=== PATIENT | female | born 2005 | race Two or more races ===

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

== ENCOUNTER 2023-07-27 11:02 | Emergency (ER) | payer MEDICAID, SELFPAY ==
--- NOTE | ~2023-07-27 | CT_ITS ---
EXAMINATION: CT SOFT TISSUE NECK WITH CONTRAST CLINICAL INFORMATION: Left throat pain COMPARISON: None available. TECHNIQUE: Following the administration of 60 mL of Omnipaque 350 intravenous contrast, helical imaging was performed in the axial plane with generation of coronal and sagittal reformatted images. This CT examination was performed using dose optimization techniques as appropriate, variously including the following: *Automated exposure control. *Adjustment of mA and/or kV according to patient size (this includes techniques or standardized protocols for targeted exams where dose is matched to indication/reason for exam; i.e. extremities or head). *Use of iterative reconstruction technique. DLP: 307.82 mGy-cm mGy-cm. FINDINGS: Nasopharynx/Skull Base: The fat planes at the skull base and the soft tissues of the nasopharynx are within normal limits. The paranasal sinuses and mastoid air cells are well-aerated. Suprahyoid Neck: Prominent hyperdensity centered along the left palatine tonsil without discrete rim enhancement. This extends inferiorly along the left aspect of the oropharynx with mild asymmetric narrowing of the aerodigestive tract. Likely trace extension into the retropharyngeal space. Infrahyoid Neck: The hypopharynx, larynx, and proximal subglottic airway are within normal limits. Thyroid: The thyroid is unremarkable without identifiable nodules. Nodes: Mildly prominent left greater than right upper cervical lymph nodes are likely reactive. Lung Apices: The partially visualized lungs are clear. Vascular Structures:The left vertebral artery likely arises directly from the aorta. The cervical vertebral arteries are not well evaluated secondary to adjacent dense venous contrast. Osseous Structures: No acute osseous abnormality. Other Findings: Limited intracranial evaluation is within normal limits. CT/CT soft tissue neck w IV con IMPRESSION: There is extensive hypodensity along the left oropharynx/centered along the left palatine tonsil without discrete rim enhancement. Finding likely represents phlegmonous change/developing abscess. Clinical correlation/attention on follow-up is recommended. Associated phlegmonous change/edema extends inferiorly to the level of the aryepiglottic folds.
[2023-07-27 11:29] VITALS: BP 104/66; PULSE 106; RESP 18; TEMP 37.1; O2SAT 100; BMI 23.7
--- NOTE | 2023-07-27 11:31 | ED.GENADULT ---
HPI - General Adult General Chief complaint: General Medical Stated complaint: Lump in throat, hard time swallowing Time Seen by Provider: 07/27/23 14:30 Source: patient Mode of arrival: ambulatory Limitations: no limitations History of Present Illness ED Provider: Maribeth CARO HPI narrative: This is a 17-year-old female with no known medical history presenting to the emergency department with complaints of sore throat for the past 3 days rapidly worsening. She reports the left side of her throat and neck hurt more than the right. She reports she has not been eating or drinking as much as usual secondary to difficulty swallowing.. Has not tried anything for pain or discomfort at home are [id number]. Reports subjective fevers and chills. Denies chest pain, nausea, vomiting, abdominal pain, headache, vision changes, dizziness and weakness. Related Data Previous Rx's ?Medication ?Instructions ?Recorded cephalexin 500 mg capsule 500 mg PO QID 7 days #28 caps 05/01/21 mupirocin 2 % topical ointment 1 appl topical BID #15 grams 05/01/21 sulfamethoxazole 800 1 tab PO Q12H 7 days #14 tabs 05/01/21 mg-trimethoprim 160 mg tablet (Bactrim DS) Allergies Allergy/AdvReac Type Severity Reaction Status Date / Time No Known Allergies Allergy Verified 07/27/23 11:32 [No Known Allergies*] Review of Systems Review of Systems: Yes all other systems are reviewed and are negative PMFSH Past Medical History Attestation statement: The following information was validated with the patient. Source: old records reviewed and nursing notes reviewed Social History Social History Advance Directives: No Advance Directives Information Provided: Yes Physical Exam ED Vital Signs: Vital Signs - 24 hr 07/27/23 11:29 07/27/23 15:18 07/27/23 16:19 Temperature 98.8 F 101.2 F H 99.7 F Pulse Rate 106 H 96 90 Respiratory Rate 18 16 18 Blood Pressure 104/66 112/73 101/64 Pulse Oximetry 100 99 98 Oxygen Delivery Method Room Air Room Air Room Air 07/27/23 18:07 Temperature 98.7 F Pulse Rate 73 Respiratory Rate 16 Blood Pressure 103/57 L Pulse Oximetry 96 Oxygen Delivery Method Room Air BMI result Body Mass Index 23.7 vss Appearance: Alert.? Oriented X3.? No acute distress.? Head: Normocephalic, atraumatic, no step-offs or deformities Eyes: Pupils equal, round and reactive to light.? ENT: Erythematous posterior oropharynx with left tonsillar hypertrophy and exudates noted uvula also swollen and divated to the left. Speaking in short sentences with a muffled voice. Neck: Normal inspection.? Neck supple.? CVS: Normal heart rate and rhythm.? Pulses normal.? Respiratory: No respiratory distress.? Breath sounds normal.? Abdomen: Soft and nontender.? Skin: Skin warm and dry.? Normal skin color.? Normal skin turgor.? Extremities: No lower extremity edema.? No calf ttp. 5/5 strength to bilateral upper and lower extremities Back: No midline tenderness, no C-spine tenderness, full range of motion, no CVA tenderness bilaterally Neuro: Oriented X 3.? No motor deficit.? No sensory deficit. CN 2-12 intact Course Course Course Narrative: This is an RME: Additional HPI, ROS, PE not included below will be deferred to primary provider. RME assessment and note performed by: Marcie Dewey PA-C This is a [age] presenting to the ER with complaints of sore throat x 3 days. Patient reports she is unable to eat secondary to the pain. Denies taking medications at home to treat her current symptoms. She is able to drink fluids however difficult to swallow solid food. Physical exam with erythematous posterior oropharynx with left tonsillar hypertrophy and exudates noted, airway is patent Plan: strep test Reevaluation(s) Reevaluation #1: CBC with white count with left shift. Chemistry unremarkable. Lactic acid normal. CT soft tissue neck extensive hypodensity along the left oropharynx and centered along the left palatine tonsil without discrete rim enhancement. Findings representing phlegmonous change in developing abscess. Associated phlegmonous change in edema extends inferiorly to the level of the aryepiglottic folds. Patient reports Decadron helped, still having changes in voice is reported initially however improved. Tolerating fluids. Patient's airway is very constricted secondary to swollen tonsils, and swollen uvula. My attending Dr. Posada was also concerned about this patient initially. Not seeing progress I would like to see to discharge patient home to self. This facility does not have ears Nose and Throat, for this reason she will require transfer to a facility with specialty ENT, I reached out to [facility] and spoke to Dr. Becky Matos ENT who states if concerned at all of airway for this patient patient can go ED to ED to [facility] in [facility]. Accepting at [facility] Dr. Knowles Plan- transfer patient aware Time: 19:37 Medications Administered Discontinued Medications Generic Name Dose Route Start Last Admin Trade Name Breanna PRN Reason Stop Dose Admin Acetaminophen 975 mg 07/27/23 15:30 07/27/23 15:51 Acetaminophen 325 Mg Tablet PO 07/27/23 15:31 975 mg ONCE ONE Administration Dexamethasone Sodium Phosphate 8 mg 07/27/23 14:27 07/27/23 15:40 Dexamethasone Sod Phosphate 10 Mg/Ml Vial IVPUSH 07/27/23 14:28 8 mg ONCE ONE Administration Sodium Chloride 1,000 mls @ 999 mls/hr 07/27/23 14:27 07/27/23 18:45 Ns IV 07/27/23 15:27 Infused .Q1H1M ONE Infusion Ceftriaxone Sodium 2 gm/ 50 mls @ 100 mls/hr 07/27/23 14:27 07/27/23 18:45 Sodium Chloride IV 07/27/23 14:56 Infused ONCE ONE Infusion Iohexol 100 ml 07/27/23 17:10 07/27/23 17:10 Iohexol 350 Mg/Ml 100 Ml Infus..Btl IV 07/27/23 17:11 60 ml ONCE ONE Administration Ketorolac Tromethamine 15 mg 07/27/23 14:27 07/27/23 15:40 Ketorolac Tromethamine 15 Mg/Ml Vial IVPUSH 07/27/23 14:28 15 mg ONCE ONE Administration Ondansetron HCl 4 mg 07/27/23 14:27 07/27/23 15:40 Ondansetron Hcl 4 Mg/2 Ml Vial IVPUSH 07/27/23 14:28 4 mg ONCE ONE Administration Medical Decision Making Medical Decision Making [facility] Narrative: 1440 17 year old female presents w/ sore throat X 3 days. Difficulty tollerating solids. PE w/ erythematous posterior oropharynx with left tonsillar hypertrophy and exudates noted uvula also swollen and divated to the left. hx and pe concerning for [employer] vs RPA vs pharyngitis. Moderate threat to airway. Unlikely meningitis, encephalitis, epiglotitis Plan-labs, imaging,meds, ct scan Will give decadron, rocephin, tylenol and toradol. Differential Diagnosis Differential Diagnoses: The differential diagnosis associated with the presentation includes hx and pe concerning for [employer] vs RPA vs pharyngitis. Moderate threat to airway. Unlikely meningitis, encephalitis, epiglotitis Admission/Observation Consideration of admission/observation: Escalation of care including admission/observation considered Lab Data MDM Lab Attestation statement: I reviewed the patient's lab results. 07/27/23 14:59 07/27/23 14:59 Labs: Lab Results 07/27/23 07/27/23 07/27/23 Range/Units 11:45 14:59 14:59 WBC 12.1 H (4.8-10.8) X10*3/uL RBC 4.81 (4.20-5.50) X10*6/uL Hgb 12.6 (12.0-16.0) g/dl Hct 38.7 (37.0-47.0) % MCV 80.5 (80.0-98.0) fL MCH 26.2 L (27.0-33.0) pg MCHC 32.6 (31.0-35.0) g/dl RDW 13.4 (11.0-16.0) % Plt Count 291 (160-400) X10*3/uL MPV 8.8 L (9.4-12.3) fL Immature Gran % (Auto) 0.4 (0.0-0.4) % Neut % (Auto) 80.3 H (45-73) % Lymph % (Auto) 10.1 L (20-40) % Long % (Auto) 8.9 (2-11) % Eos % (Auto) 0.1 (0-4) % Baso % (Auto) 0.2 (0-2) % Lymph # (Auto) 1.2 (1.2-4.9) X10*3/uL Long # (Auto) 1.1 (0.1-1.2) X10*3/uL Eos # (Auto) 0.0 (0.0-0.4) X10*3/uL Baso # (Auto) 0.0 (0.0-0.2) X10*3/uL Abs Immat Gran (auto) 0.05 H (0.00-0.03) X10*3/uL Absolute Neuts (auto) 9.7 H (2.0-8.3) x10*3/uL Absolute Nucleated RBC 0.000 (0.0-0.012) X10*3/uL Nucleated RBC % (auto) 0.0 (0.0-0.2) /100WBC Sodium 140 Cancelled (135-145) mmol/L Potassium 3.4 (3.3-5.1) mmol/L Chloride (96-108) mmol/L Carbon Dioxide (22-29) mmol/L Anion Gap (12-20) BUN (9-16) mg/dL Creatinine (0.5-1.4) mg/dL Estim Creat Clear Calc Estimated GFR Random Glucose (60-115) mg/dL Lactic Acid (0.5-2.0) mmol/L Calcium (8.4-10.2) mg/dL Magnesium (1.6-2.6) mg/dL Total Bilirubin (0.0-1.0) mg/dL Direct Bilirubin (0.0-0.5) mg/dL AST (5-31) U/L ALT (0-31) U/L Alkaline Phosphatase (39-117) U/L Total Protein (6.5-8.0) g/dL Albumin (3.5-5.0) g/dL Beta HCG, Quant mIU/mL Monoscreen (Negative) S. pyogenes GrpA STU Negative (Negative) 07/27/23 07/27/23 07/27/23 Range/Units 14:59 14:59 14:59 WBC (4.8-10.8) X10*3/uL RBC (4.20-5.50) X10*6/uL Hgb (12.0-16.0) g/dl Hct (37.0-47.0) % MCV (80.0-98.0) fL MCH (27.0-33.0) pg MCHC (31.0-35.0) g/dl RDW (11.0-16.0) % Plt Count (160-400) X10*3/uL MPV (9.4-12.3) fL Immature Gran % (Auto) (0.0-0.4) % Neut % (Auto) (45-73) % Lymph % (Auto) (20-40) % Long % (Auto) (2-11) % Eos % (Auto) (0-4) % Baso % (Auto) (0-2) % Lymph # (Auto) (1.2-4.9) X10*3/uL Long # (Auto) (0.1-1.2) X10*3/uL Eos # (Auto) (0.0-0.4) X10*3/uL Baso # (Auto) (0.0-0.2) X10*3/uL Abs Immat Gran (auto) (0.00-0.03) X10*3/uL Absolute Neuts (auto) (2.0-8.3) x10*3/uL Absolute Nucleated RBC (0.0-0.012) X10*3/uL Nucleated RBC % (auto) (0.0-0.2) /100WBC Sodium (135-145) mmol/L Potassium Cancelled (3.3-5.1) mmol/L Chloride 105 Cancelled (96-108) mmol/L Carbon Dioxide 23 Cancelled (22-29) mmol/L Anion Gap 15 (12-20) BUN (9-16) mg/dL Creatinine (0.5-1.4) mg/dL Estim Creat Clear Calc Estimated GFR Random Glucose (60-115) mg/dL Lactic Acid (0.5-2.0) mmol/L Calcium (8.4-10.2) mg/dL Magnesium (1.6-2.6) mg/dL Total Bilirubin (0.0-1.0) mg/dL Direct Bilirubin (0.0-0.5) mg/dL AST (5-31) U/L ALT (0-31) U/L Alkaline Phosphatase (39-117) U/L Total Protein (6.5-8.0) g/dL Albumin (3.5-5.0) g/dL Beta HCG, Quant mIU/mL Monoscreen (Negative) S. pyogenes GrpA STU (Negative) 07/27/23 07/27/23 07/27/23 Range/Units 14:59 14:59 14:59 WBC (4.8-10.8) X10*3/uL RBC (4.20-5.50) X10*6/uL Hgb (12.0-16.0) g/dl Hct (37.0-47.0) % MCV (80.0-98.0) fL MCH (27.0-33.0) pg MCHC (31.0-35.0) g/dl RDW (11.0-16.0) % Plt Count (160-400) X10*3/uL MPV (9.4-12.3) fL Immature Gran % (Auto) (0.0-0.4) % Neut % (Auto) (45-73) % Lymph % (Auto) (20-40) % Long % (Auto) (2-11) % Eos % (Auto) (0-4) % Baso % (Auto) (0-2) % Lymph # (Auto) (1.2-4.9) X10*3/uL Long # (Auto) (0.1-1.2) X10*3/uL Eos # (Auto) (0.0-0.4) X10*3/uL Baso # (Auto) (0.0-0.2) X10*3/uL Abs Immat Gran (auto) (0.00-0.03) X10*3/uL Absolute Neuts (auto) (2.0-8.3) x10*3/uL Absolute Nucleated RBC (0.0-0.012) X10*3/uL Nucleated RBC % (auto) (0.0-0.2) /100WBC Sodium (135-145) mmol/L Potassium (3.3-5.1) mmol/L Chloride (96-108) mmol/L Carbon Dioxide (22-29) mmol/L Anion Gap Cancelled (12-20) BUN 11 Cancelled (9-16) mg/dL Creatinine 0.77 Cancelled (0.5-1.4) mg/dL Estim Creat Clear Calc 88.7 Estimated GFR Random Glucose (60-115) mg/dL Lactic Acid (0.5-2.0) mmol/L Calcium (8.4-10.2) mg/dL Magnesium (1.6-2.6) mg/dL Total Bilirubin (0.0-1.0) mg/dL Direct Bilirubin (0.0-0.5) mg/dL AST (5-31) U/L ALT (0-31) U/L Alkaline Phosphatase (39-117) U/L Total Protein (6.5-8.0) g/dL Albumin (3.5-5.0) g/dL Beta HCG, Quant mIU/mL Monoscreen (Negative) S. pyogenes GrpA STU (Negative) 07/27/23 07/27/23 07/27/23 Range/Units 14:59 14:59 14:59 WBC (4.8-10.8) X10*3/uL RBC (4.20-5.50) X10*6/uL Hgb (12.0-16.0) g/dl Hct (37.0-47.0) % MCV (80.0-98.0) fL MCH (27.0-33.0) pg MCHC (31.0-35.0) g/dl RDW (11.0-16.0) % Plt Count (160-400) X10*3/uL MPV (9.4-12.3) fL Immature Gran % (Auto) (0.0-0.4) % Neut % (Auto) (45-73) % Lymph % (Auto) (20-40) % Long % (Auto) (2-11) % Eos % (Auto) (0-4) % Baso % (Auto) (0-2) % Lymph # (Auto) (1.2-4.9) X10*3/uL Long # (Auto) (0.1-1.2) X10*3/uL Eos # (Auto) (0.0-0.4) X10*3/uL Baso # (Auto) (0.0-0.2) X10*3/uL Abs Immat Gran (auto) (0.00-0.03) X10*3/uL Absolute Neuts (auto) (2.0-8.3) x10*3/uL Absolute Nucleated RBC (0.0-0.012) X10*3/uL Nucleated RBC % (auto) (0.0-0.2) /100WBC Sodium (135-145) mmol/L Potassium (3.3-5.1) mmol/L Chloride (96-108) mmol/L Carbon Dioxide (22-29) mmol/L Anion Gap (12-20) BUN (9-16) mg/dL Creatinine (0.5-1.4) mg/dL Estim Creat Clear Calc Cancelled Estimated GFR > 60 Cancelled Random Glucose 92 Cancelled (60-115) mg/dL Lactic Acid 1.4 (0.5-2.0) mmol/L Calcium 9.6 (8.4-10.2) mg/dL Magnesium (1.6-2.6) mg/dL Total Bilirubin (0.0-1.0) mg/dL Direct Bilirubin (0.0-0.5) mg/dL AST (5-31) U/L ALT (0-31) U/L Alkaline Phosphatase (39-117) U/L Total Protein (6.5-8.0) g/dL Albumin (3.5-5.0) g/dL Beta HCG, Quant mIU/mL Monoscreen (Negative) S. pyogenes GrpA STU (Negative) 07/27/23 07/27/23 07/27/23 Range/Units 14:59 14:59 14:59 WBC (4.8-10.8) X10*3/uL RBC (4.20-5.50) X10*6/uL Hgb (12.0-16.0) g/dl Hct (37.0-47.0) % MCV (80.0-98.0) fL MCH (27.0-33.0) pg MCHC (31.0-35.0) g/dl RDW (11.0-16.0) % Plt Count (160-400) X10*3/uL MPV (9.4-12.3) fL Immature Gran % (Auto) (0.0-0.4) % Neut % (Auto) (45-73) % Lymph % (Auto) (20-40) % Long % (Auto) (2-11) % Eos % (Auto) (0-4) % Baso % (Auto) (0-2) % Lymph # (Auto) (1.2-4.9) X10*3/uL Long # (Auto) (0.1-1.2) X10*3/uL Eos # (Auto) (0.0-0.4) X10*3/uL Baso # (Auto) (0.0-0.2) X10*3/uL Abs Immat Gran (auto) (0.00-0.03) X10*3/uL Absolute Neuts (auto) (2.0-8.3) x10*3/uL Absolute Nucleated RBC (0.0-0.012) X10*3/uL Nucleated RBC % (auto) (0.0-0.2) /100WBC Sodium (135-145) mmol/L Potassium (3.3-5.1) mmol/L Chloride (96-108) mmol/L Carbon Dioxide (22-29) mmol/L Anion Gap (12-20) BUN (9-16) mg/dL Creatinine (0.5-1.4) mg/dL Estim Creat Clear Calc Estimated GFR Random Glucose (60-115) mg/dL Lactic Acid (0.5-2.0) mmol/L Calcium Cancelled (8.4-10.2) mg/dL Magnesium 2.2 (1.6-2.6) mg/dL Total Bilirubin 0.5 Cancelled (0.0-1.0) mg/dL Direct Bilirubin 0.2 (0.0-0.5) mg/dL AST 13 Cancelled (5-31) U/L ALT 11 (0-31) U/L Alkaline Phosphatase (39-117) U/L Total Protein (6.5-8.0) g/dL Albumin (3.5-5.0) g/dL Beta HCG, Quant mIU/mL Monoscreen (Negative) S. pyogenes GrpA STU (Negative) 07/27/23 07/27/23 07/27/23 Range/Units 14:59 14:59 14:59 WBC (4.8-10.8) X10*3/uL RBC (4.20-5.50) X10*6/uL Hgb (12.0-16.0) g/dl Hct (37.0-47.0) % MCV (80.0-98.0) fL MCH (27.0-33.0) pg MCHC (31.0-35.0) g/dl RDW (11.0-16.0) % Plt Count (160-400) X10*3/uL MPV (9.4-12.3) fL Immature Gran % (Auto) (0.0-0.4) % Neut % (Auto) (45-73) % Lymph % (Auto) (20-40) % Long % (Auto) (2-11) % Eos % (Auto) (0-4) % Baso % (Auto) (0-2) % Lymph # (Auto) (1.2-4.9) X10*3/uL Long # (Auto) (0.1-1.2) X10*3/uL Eos # (Auto) (0.0-0.4) X10*3/uL Baso # (Auto) (0.0-0.2) X10*3/uL Abs Immat Gran (auto) (0.00-0.03) X10*3/uL Absolute Neuts (auto) (2.0-8.3) x10*3/uL Absolute Nucleated RBC (0.0-0.012) X10*3/uL Nucleated RBC % (auto) (0.0-0.2) /100WBC Sodium (135-145) mmol/L Potassium (3.3-5.1) mmol/L Chloride (96-108) mmol/L Carbon Dioxide (22-29) mmol/L Anion Gap (12-20) BUN (9-16) mg/dL Creatinine (0.5-1.4) mg/dL Estim Creat Clear Calc Estimated GFR Random Glucose (60-115) mg/dL Lactic Acid (0.5-2.0) mmol/L Calcium (8.4-10.2) mg/dL Magnesium (1.6-2.6) mg/dL Total Bilirubin (0.0-1.0) mg/dL Direct Bilirubin (0.0-0.5) mg/dL AST (5-31) U/L ALT Cancelled (0-31) U/L Alkaline Phosphatase 56 Cancelled (39-117) U/L Total Protein 8.3 H Cancelled (6.5-8.0) g/dL Albumin 4.5 (3.5-5.0) g/dL Beta HCG, Quant mIU/mL Monoscreen (Negative) S. pyogenes GrpA STU (Negative) 07/27/23 Range/Units 14:59 WBC (4.8-10.8) X10*3/uL RBC (4.20-5.50) X10*6/uL Hgb (12.0-16.0) g/dl Hct (37.0-47.0) % MCV (80.0-98.0) fL MCH (27.0-33.0) pg MCHC (31.0-35.0) g/dl RDW (11.0-16.0) % Plt Count (160-400) X10*3/uL MPV (9.4-12.3) fL Immature Gran % (Auto) (0.0-0.4) % Neut % (Auto) (45-73) % Lymph % (Auto) (20-40) % Long % (Auto) (2-11) % Eos % (Auto) (0-4) % Baso % (Auto) (0-2) % Lymph # (Auto) (1.2-4.9) X10*3/uL Long # (Auto) (0.1-1.2) X10*3/uL Eos # (Auto) (0.0-0.4) X10*3/uL Baso # (Auto) (0.0-0.2) X10*3/uL Abs Immat Gran (auto) (0.00-0.03) X10*3/uL Absolute Neuts (auto) (2.0-8.3) x10*3/uL Absolute Nucleated RBC (0.0-0.012) X10*3/uL Nucleated RBC % (auto) (0.0-0.2) /100WBC Sodium (135-145) mmol/L Potassium (3.3-5.1) mmol/L Chloride (96-108) mmol/L Carbon Dioxide (22-29) mmol/L Anion Gap (12-20) BUN (9-16) mg/dL Creatinine (0.5-1.4) mg/dL Estim Creat Clear Calc Estimated GFR Random Glucose (60-115) mg/dL Lactic Acid (0.5-2.0) mmol/L Calcium (8.4-10.2) mg/dL Magnesium (1.6-2.6) mg/dL Total Bilirubin (0.0-1.0) mg/dL Direct Bilirubin (0.0-0.5) mg/dL AST (5-31) U/L ALT (0-31) U/L Alkaline Phosphatase (39-117) U/L Total Protein (6.5-8.0) g/dL Albumin Cancelled (3.5-5.0) g/dL Beta HCG, Quant < 2 mIU/mL Monoscreen Negative (Negative) S. pyogenes GrpA STU (Negative) Independent Interpretation I performed an independent interpretation of an: CT Scan (CT/CT soft tissue neck w IV con IMPRESSION: There is extensive hypodensity along the left oropharynx/centered along the left palatine tonsil without discrete rim enhancement. Finding likely represents phlegmonous change/developing abscess. Clinical correlation/attention on follow-up is recommended) Radiology Impression Discussion of test interpretation with radiology: I have reviewed the radiologist's reading. External Record Review External record reviewed: Outpatient record Chronic Conditions Denies Critical Care Time Critical Care Time Critical Care Time: Yes Total Critical Care Time: 60 Attestation: I attest to this time spent taking care of the patient, obtaining history, physical, reviewing labs, imaging, speaking to my attending, specialist or hospitalist. Discharge Plan Discharge Clinical Impression: Abscess, peritonsillar, Acute sore throat Patient Disposition: [facility] Transfer Details: [facility] Dr. [facility] ED --> ED Instructions: Abscess Incision and Drainage (DC), Peritonsillar Abscess (ED), Pharyngitis (ED) Additional Instructions: Take your medications as prescribed. If you were prescribed antibiotics today, it is important that you take your medication to their entirety, do not skip any doses, do not finish them early. Follow-up with your primary care provider this week. Return to the emergency department with new or worsening symptoms. Such as fevers, chills, chest pain, shortness of breath, nausea, vomiting, dizziness, headache, vision changes, lethargy In case of emergency call 911 Prescriptions: No Action sulfamethoxazole-trimethoprim [Bactrim DS] 800-160 mg tablet 1 tab PO Q12H 7 Days Qty: 14 0RF cephalexin 500 mg capsule 500 mg PO QID 7 Days Qty: 28 0RF mupirocin 2 % ointment 1 appl topical BID Qty: 15 0RF Referrals: [facility] [Primary Care Provider] - 1 week Print Language: Malay
[2023-07-27 12:02] LABS: IDNOW Serial# 58CA691E; Strep A Nucleic Acid Negative (Negative)
[2023-07-27 15:06] LABS: MANUAL DIFF FLAG NO
[2023-07-27 15:15] LABS: Basophils Percent Auto 0.2 % (0-2); Eosinophils Percent Auto 0.1 % (0-4); Hematocrit 38.7 % (37.0-47.0); Hemoglobin 12.6 g/dl (12.0-16.0); Imm Gran Abs Auto 0.05 X10*3/uL (0.00-0.03); Imm Gran Pct Auto 0.4 % (0.0-0.4); Lymphocytes Absolute Auto 1.2 X10*3/uL (1.2-4.9); Lymphocytes Percent Auto 10.1 % (20-40); Mean Corpuscular HGB Conc 32.6 g/dl (31.0-35.0); Mean Corpuscular Hemoglobin 26.2 pg (27.0-33.0); Mean Corpuscular Volume 80.5 fL (80.0-98.0); Mean Platelet Volume 8.8 fL (9.4-12.3); Monocytes Absolute Auto 1.1 X10*3/uL (0.1-1.2); Monocytes Percent Auto 8.9 % (2-11); Neutrophils Absolute Auto 9.7 x10*3/uL (2.0-8.3); Neutrophils Percent Auto 80.3 % (45-73); Platelet Count 291 X10*3/uL (160-400); Red Blood Count 4.81 X10*6/uL (4.20-5.50); Red Cell Distribution Width 13.4 % (11.0-16.0); White Blood Count 12.1 X10*3/uL (4.8-10.8)
[2023-07-27 15:18] VITALS: BP 112/73; PULSE 96; RESP 16; TEMP 38.4; O2SAT 99
[2023-07-27 15:23] LABS: Lactic Acid 1.4 mmol/L (0.5-2.0)
[2023-07-27 15:28] LABS: Alanine Aminotransferase 11 U/L (0-31); Albumin Level 4.5 g/dL (3.5-5.0); Alkaline Phosphatase 56 U/L (39-117); Aspartate Amino Transferase 13 U/L (5-31); Bilirubin Direct 0.2 mg/dL (0.0-0.5); Bilirubin Total 0.5 mg/dL (0.0-1.0); Monotest Negative (Negative); Total Protein 8.3 g/dL (6.5-8.0)
[2023-07-27 15:35] LABS: Magnesium 2.2 mg/dL (1.6-2.6)
[2023-07-27] MEDS: 0.9 % Sodium Chloride 1,000 ML 999 ML IV (15:38)
[2023-07-27] MEDS: dexAMETHasone sod phosphate 10 MG/ML VIAL 8 MG IVPUSH (15:40)
[2023-07-27] MEDS: ondansetron HCL 4 MG/2 ML VIAL IVPUSH (15:40)
[2023-07-27] MEDS: Ketorolac Tromethamine 15 MG/ML VIAL IVPUSH (15:40)
--- NOTE | 2023-07-27 15:42 | MHC.EDTECH ---
THIS PCT ASSUMED CARE OF PATIENT VITALS TAKEN ,AND 2ND SETS OF BLOOD CULTURE DRAWN AND SENT TO LAB .
[2023-07-27] MEDS: cefTRIAXone sodium 2 GM in 0.9 % Sodium Chloride 50 ML IV (15:48)
[2023-07-27] MEDS: Acetaminophen 325 MG TABLET 975 MG PO (15:51)
[2023-07-27 15:58] LABS: HCG Quantitative < 2 mIU/mL
[2023-07-27 16:19] VITALS: BP 101/64; PULSE 90; RESP 18; TEMP 37.6; O2SAT 98
[2023-07-27] MEDS: iohexoL 350 MG/ML 100 ML INFUS..BTL IV (17:10)
[2023-07-27 17:28] LABS: Anion Gap 15 (12-20); Blood Urea Nitrogen 11 mg/dL (9-16); Calcium 9.6 mg/dL (8.4-10.2); Carbon Dioxide 23 mmol/L (22-29); Chloride 105 mmol/L (96-108); Creatinine Clr Calc Pharmacy 88.7; Estimated Glomerular Filt Rate > 60; Glucose Random 92 mg/dL (60-115); Potassium 3.4 mmol/L (3.3-5.1); Sodium 140 mmol/L (135-145)
[2023-07-27 18:07] VITALS: BP 103/57; PULSE 73; RESP 16; TEMP 37.1; O2SAT 96
--- NOTE | 2023-07-27 20:00 | PC.NURSE ---
Report called to [facility] verbal understanding obtained.
[2023-07-27 20:21] VITALS: BP 102/61; PULSE 85; RESP 16; TEMP 36.6; O2SAT 96
[2023-07-27 20:32] VITALS: BP 102/61; PULSE 85; RESP 16; TEMP 36.6; O2SAT 96
== END 2023-07-27 20:33 | disposition short-term general hospital (02) ==
PROVIDERS: Physician Assistant; Physician Assistant Medical; Emergency Provider Emergency Medicine
DX: J36 Peritonsillar abscess (principal); J02.9 Acute pharyngitis, unspecified
CPT/HCPCS: 36415; 70491; 80053; 82248; 82565; 83605; 83735; 84520; 84702; 85025; 86308; 87040; 87651; 96361; 96374; 96375; 99285; J0696; J1100; J1885; J2405; Q9967

== ENCOUNTER 2023-11-16 11:07 | Outpatient (REF) | payer MEDICAID, SELFPAY ==
[2023-11-16 15:30] LABS: Bacterial Vaginosis PCR POSITIVE (Negative); Candida Group PCR DETECTED (Not Detect); Candida glab krusei PCR DETECTED (Not Detect); Trichomonas vaginalis PCR NOT DETECTED (Not Detect)
[2023-11-16 15:54] LABS: CT PCR NOT DETECTED (Not Detect.); NG PCR NOT DETECTED (Not Detect.)
[2023-11-17 04:36] LABS: HBS Num1 20.05 mIU/mL (0-7.99); HBc Num1 0.15 S/CO (0.00-0.79); HBsAGNum1 0.25 S/CO (0.00-0.99); Hepatitis B Core Antibody Nonreactive (Nonreactive); Hepatitis B Surface Antigen Negative (Negative); ~HepC Num1 0.11 S/CO (0.00-0.79); ~Hepatitis B Surface Antibody REACTIVE (Nonreactive); ~Hepatitis C Antibody Nonreactive (Nonreactive)
[2023-11-17 04:52] LABS: HIV AB/AG Nonreactive (Nonreactive); HIV Num 1 0.05 S/CO (0.00-0.99)
== END 2023-11-16 11:08 | disposition home or self-care (01) ==
LOC: HO.HHCL 11:07
PROVIDERS: Visit Provider Nurse Practitioner
DX: R10.2 Pelvic and perineal pain (principal)
CPT/HCPCS: 0352U; 36415; 86704; 86706; 86803; 87086; 87340; 87389; 87491; 87591

== ENCOUNTER 2024-12-23 10:17 | Outpatient (REF) | payer MEDICAID, SELFPAY ==
--- OUTSIDE RECORDS SUMMARY | 2024-12-23 11:00 | XMS_ITS | Encounter Summary ---
Author Organization [employer] Address [address] [facility] 7[facility] [place] [address] Care Team Providers Care Kitchenwhere Maker Name Role Phone Nury Butler MARTHA Primary Care Provider [phone] Reason for Referral * Consultation (Routine) - Authorized Specialty Diagnoses / Procedures Referred By Manoj t Referred To Contact Obstetrics and Gynecology Diagnoses Missed periods Christianne Leyva MD [address] [id number] Phone: tel: fax: Referral ID Status Reason Start Date Expiration Date Visits Requested Visits Authorized [id number] Authorized Specialty Services Required 12/23/2025 1 1 * Imaging (Routine) - Authorized Specialty Diagnoses / Procedures Referred By Manoj t Referred To Contact Radiology Diagnoses Missed periods Procedures Us Pelvis complete Christianne Leyva MD [address] [place] [address] Phone: tel: fax: [address] Phone: tel: fax: Referral ID Status Reason Start Date Expiration Date V isits Requested Visits Authorized [id number] Authorized 12/23/2024 12/23/2025 1 1 * Imaging (Routine) - Authorized Specialty Diagnoses / Procedures Referred By Manjo t Referred To Contact Radiology Diagnoses Missed periods Procedures US Pelvis Transvaginal Christianne Leyva MD [address] [place] [address] Phone: tel: fax: [facility] [address] [place], [place] Phone: tel: fax: Referral ID Status Reason Start Date Expiration Date V isits Requested Visits Authorized [id number] Authorized 12/23/2024 12/23/2025 1 1 Reason for Visit * Reason Comments Fatigue Possible Encounter Details Date Type Department Care Team (Late st Contact Info) Description 12/23/2024 11:00 AM EDT Office Visit [facility] [address] [place] [address] Christianne Leyva MD [address] [place] [address] Missed periods (Primary Dx); Other fatigue Social History Tobacco Use Types Packs/Day Years Used Date Smoking Tobacco: Never Smokeless Tobacco: Never Tobacco Cessation:Counseling Given: Not Answered Alcohol Use Standard Drinks/Week Comments Never 0 (1 standard drink = 0.6 oz pur e alcohol) Alcohol Answer Date Recorded Frequency of Alcohol Consumption Not on file 11/16/2023 Average Number of Drinks Not on file 024 Frequency of Binge Drinking Not on file 11/2023 Score 0 11/16/2023 Depression Answer Date Recorded Patient Health Questionnaire-9 Score 6 11/16/2023 Patient Health Questionnaire-9 Score 6 11/16/2023 Last PHQ-9: Questionnaire Data Not on file 0 11/16/2023 Housing Stability Answer Date Recorded What is your housing situation today? I do not have housing (Staying with others, in a hotel, in a residential, living outside on the street, on a beach, in a car, or in a park 11/16/[address] you li ve. Do you have problems with any of the following? None of the above 11/16/2023 Food Insecurity Answer Date Recorded Within the past 12 months, y ou worried that your food would run out before you got money to buy more: Never True 11/16/2023 Within the past 12 months,th e food you bought just didn't last and you didn't have enough money to get more: Never True 11/2023 Transportation Answer Date Recorded In the past 12 months, has l ack of transportation kept you from medical appts, meetings, work or from getting things needed for daily living? No 11/16/2023 Utilities Answer Date Recorded In the past 12 months, has t he electric, gas, oil or water company threatened to shut off services in your home? No 11/16/2023 Depression Answer Date Recorded Patient Health Questionnaire-2 Score 1 11/16/2023 Internet Access Answer Date Recorded Internet Access Q1 Yes 11/16/2023 Internet Access Q2 Not on file 11/16/2023 Comments Unknown Sex and Gender Information Value Date Recorded Sex Assigned at Female 01/06/2022 10:17 AM EDT Legal Sex Female 10:17 AM EDT Gender Identity Female 11/09/2023 8:37 AM EDT Sexual Orientation Straight 01/06/2022 10 :17 AM EDT documented as of this encounter Last Filed Vital Signs Vital Sign Reading Time Taken Comments Blood Pressure 135/78 12/23/2024 10:01 AM EDT Pulse 73 12/23/2024 10:01 AM EDT Temperature 37.1 C (98.7 F) 12/23/2024 10:01 AM EDT Respiratory Rate 17 12/23/2024 10:0 1 AM EDT Oxygen Saturation - - Inhaled Oxygen Concentration - - Weight 68.9 kg (151 lb 12.8 oz) 025 10:01 AM EDT Height 155.6 cm (5' 1.25 ) 12/23/2024 1 0:01 AM EDT Body Mass Index 28.45 12/23/2024 10:01 AM EDT documented in this encounter Progress Notes * Christianne Leyva MD - 12/23/2024 11:00 AM EDT Subjective Patient ID: Garry Gomez is a 19 y.o. female who presents for Fatigue and Possible . Fatigue This is a new problem. The current episode started 1 to 4 weeks ago. The problem occurs constantly.The problem has been gradually worsening. Associated symptoms include fatigue. Pertinent negatives include no abdominal pain, anorexia, arthralgias, change in bowel habit, chest pain, chills, congestion, coughing, diaphoresis, headaches, joint swelling, myalgias, nausea, neck pain, numbness, rash, sore throat, swollen glands, visual change, vomiting or weakness. Associated symptoms comments: MISSED PERIOD SINCE 2 MNTHS. Nothing aggravates the symptoms. She has tried nothing for the symptoms. Review of Systems Constitutional: Positive for fatigue. Negative for chills and diaphoresis. HENT: Negative for congestion and sore throat. Respiratory: Negative for cough. Cardiovascular: Negative for chest pain. Gastrointestinal: Negative for abdominal pain, anorexia, change in bowel habit, nausea and vomiting. Musculoskeletal: Negative for arthralgias, joint swelling, myalgias and neck pain. Skin: Negative for rash. Neurological: Negative for weakness, numbness and headaches. Objective Physical Exam Constitutional: Appearance: Normal appearance. Cardiovascular: Rate and Rhythm: Normal rate and regular rhythm. Pulses: Normal pulses. Heart sounds: Normal heart sounds. Pulmonary: Effort: Pulmonary effort is normal. Abdominal: General: Abdomen is flat. Neurological: Mental Status: She is alert. Assessment/Plan Diagnoses and all orders for this visit: Missed periods Comments: UPT neg HCG ordered Pelvic USG ordered referred to varying exceptionalities teacher for further management Orders: - POCT , urine manually resulted - US Pelvis Transvaginal; Future - Us Pelvis complete; Future - Referral to Obstetrics / Gynecology; Future - hCG, Total, Quantitative; Future Other fatigue Comments: Labs ordered - TSH and CBC Advised healthy balanced diet Advised good sleep scheudle and daily exercise Increase fluid intake Orders: - CBC auto differential; Future - TSH W/Reflex to FT4; Future documented in this encounter Plan of Treatment Scheduled Orders Name Type Priority Associated Diagnoses Orde r Schedule TSH W/Reflex to FT4 Lab Routine Other fatigue Expected: 12/23/2024 (Approximate), Expires: 12/23/2025 US Pelvis Transvaginal Imaging Routine Missed periods Expected: 12/23/2024, Expires: 12/23/2025 Us Pelvis complete Imaging Routine Missed periods Expected: 12/23/2024, Expires: 12/23/2025 hCG, Total, Quantitative Lab Routine Missed periods Expected: 12/23/2024 (Approximate), Expires: 12/23/2025 Scheduled Referrals Name Type Priority Associated Diagnoses Order Schedule Referral to Obstetrics / Gynecology Outpatient Referral Routine Missed periods Expected: 12/23/2024 (Approximate), Expires: 12/23/2025 documented as of this encounter Procedures Procedure Name Priority Date/Time Associated Diagnosis Comments CBC WITH AUTO DIFFERENTIAL Routine 12/23/2024 10:23 AM EDT Other fatigue POCT , URINE Routine 12/23/2024 10:14 AM EDT Missed periods documented in this encounter Results * (ABNORMAL) CBC auto differential (12/23/2024 10:23 AM EDT) White Blood Count 5.1 4.8 - 10.8 X10*3/uL [facility] Red Blood Count 4.90 4.20 - 5.50 X10*6/uL [facility] Hemoglobin 12.6 12.0 - 16.0 g/dl [facility] Hematocrit 39.1 37.0 - 47.0 % [facility] Mean Corpuscular Volume 79.8(L) 80.0 - 98.0 fL [facility] Mean Corpuscular Hemoglobin 25.7(L) 27.0 - 33.0 pg [facility] Mean Corpuscular HGB Conc 32.2 31.0 - 35.0 g/dl [facility] Red Cell Distribution Width 14.3 11.0 - 16.0 % [facility] Platelet Count 333 160 - 400 X10*3/uL [facility] Mean Platelet Volume 8.7(L) 9.4 - 12.3 fL [facility] Neutrophils Percent Auto 48.0 45 - 73 % [facility] Imm Gran Pct Auto 0.4 0.0 - 0.4 % [facility] Lymphocytes Percent Auto 37.1 20 - 40 % [facility] Monocytes Percent Auto 10.0 2 - 11 % [facility] Eosinophils Percent Auto 3.5 0 - 4 % [facility] Basophils Percent Auto 1.0 0 - 2 % [facility] NRBC Pct Auto 0.0 0.0 - 0.2 /100WBC [facility] Neutrophils Absolute Auto 2.4 2.0 - 8.3 x10*3/uL [facility] Imm Gran Abs Auto 0.02 0.00 - 0.03 X10*3/uL [facility] Lymphocytes Absolute Auto 1.9 1.2 - 4.9 X10*3/uL [facility] Monocytes Absolute Auto 0.5 0.1 - 1.2 X10*3/uL [facility] Eosinophils Absolute Auto 0.2 0.0 - 0.4 X10*3/uL [facility] Basophils Absolute Auto 0.1 0.0 - 0.2 X10*3/uL [facility] NRBC Abs Auto 0.000 0.0 - 0.012 X10*3/uL [facility] Blood Venous blood specimen / Unknown 12/23/2024 10:23 AM EDT 12/23/2024 11:16 AM EDT Christianne Leyva MD LAB BLOOD ORDERABLES Final Resul t [facility] [address] [place] [address] [phone] * POCT , urine manually resulted (12/23/2024 10:14 AM EDT) Preg Test, Ur Negative Negative, Indeterminate, None Detected, Invalid, Specimen unsatisfactory for evaluation, Weakly Positive, 2+ Urine 12/23/2024 10:1 4 AM EDT Christianne Leyva MD POINT OF CARE TEST ENTER/EDIT OR DERABLES Final Result documented in this encounter Visit Diagnoses Diagnosis Missed periods- Primary Absence of menstruation Other fatigue documented in this encounter Additional Health Concerns Assessment Noted Time PHQ-9 Depression Total Score: 6 11/16/19 24 10:59 AM EDT documented as of this encounter Care Teams Kitchenwhere Maker Relationship Specialty Start Date End Date Nury Butler NP [address] [place] [address] PCP - General Family Medicine 05/11/23 documented as of this encounter
[2024-12-23 11:20] LABS: MANUAL DIFF FLAG NO
[2024-12-23 11:41] LABS: Hematocrit 39.1 % (37.0-47.0); Hemoglobin 12.6 g/dl (12.0-16.0); Imm Gran Abs Auto 0.02 X10*3/uL (0.00-0.03); Imm Gran Pct Auto 0.4 % (0.0-0.4); Lymphocytes Absolute Auto 1.9 X10*3/uL (1.2-4.9); Mean Corpuscular HGB Conc 32.2 g/dl (31.0-35.0); Mean Corpuscular Hemoglobin 25.7 pg (27.0-33.0); Mean Corpuscular Volume 79.8 fL (80.0-98.0); NRBC Abs Auto 0.000 X10*3/uL (0.0-0.012); NRBC Pct Auto 0.0 /100WBC (0.0-0.2); Platelet Count 333 X10*3/uL (160-400); Red Blood Count 4.90 X10*6/uL (4.20-5.50); White Blood Count 5.1 X10*3/uL (4.8-10.8)
--- OUTSIDE RECORDS SUMMARY | 2024-12-23 12:11 | XMS_ITS | Encounter Summary ---
Author Organization [employer] Address [address] [facility] 7 [place] [address] Care Team Providers Care Door Repairman Name Role Phone Nury Butler MARTHA Primary Care Provider [phone] Encounter Details Date Type Department Care Team (Latest Contact Info) Description 12/23/2024 Travel Social History Tobacco Use Types Packs/Day Years Used Date Smoking Tobacco: Never Smokeless Tobacco: Never Alcohol Use Standard Drinks/Week Comments Never 0 [...] with others, in a hotel, in a usp, living outside on the street, on a [...] AM EDT documented as of this encounter Plan of Treatment Not on file documented as of this encounter Visit Diagnoses Not on filedocumented in this encounter Additional Health Concerns Assessment Noted Time PHQ-9 Depression Total Score: 6 11/16/19 24 10:59 AM EDT documented as of this encounter Care Teams Door Repairman Relationship Specialty Start Date End Date Nury Butler NP [address] [place] [id number] PCP - General Family Medicine 05/11/23 documented as of this encounter
--- OUTSIDE RECORDS SUMMARY | 2024-12-23 12:11 | XMS_ITS | Clinical Summary ---
Author Organization [facility] Address [address] [place] [address] Care Team Providers Care Lens Generating Machine Tender Name Role Phone Unavailable Primary Care Provider Unavailabl e Social History Tobacco Use Types Packs/Day Years Used Date Smoking Tobacco: Never Assessed Comments Unknown Sex and Gender Information Value Date Recorded Sex Assigned at Not on file Legal Sex Female 1:39 PM EDT Gender Identity Not on file Sexual Orientation Not on file Plan of Treatment Health Maintenance Due Date Last Done Comments Gonorrhea/Chlamydia Screening 2003 HPV Vaccines (1 - 3-dose series) 07/29/2018 Meningococcal B Vaccine (1 o f 2 - Standard) 2019 DTaP,Tdap,and Td Vaccines (1 - Tdap) 07/29/2022 Hepatitis B Vaccines (1 of 3 - 19+ 3-dose series) 07/29/2022 Annual Well Child Visit (3-2 1 years old) 09/30/2023 HIV Screening 09/30/2023 Hepatitis C Screening 09/30/2023 Social Influencers of Health Screening 09/30/2023 Depression Screening 03/09/2024 Cervical Cancer Screening: P ap Smear 07/29/2024 COVID-19 Vaccine (1 - 2023-2 5 season) 2024 Influenza Vaccine (#1) 2024 RSV Immunization Adult Patie nts (1 - 1-dose 75+ series) 07/29/2078 HIB Vaccines Aged Out No longer eligi ble based on patient's age to complete this topic Hepatitis A Vaccines Aged Out No long er eligible based on patient's age to complete this topic IPV Vaccines Aged Out No longer eligi ble based on patient's age to complete this topic MMR Vaccines Aged Out No longer eligi ble based on patient's age to complete this topic Meningococcal ACWY Vaccine Aged Out N o longer eligible based on patient's age to complete this topic Pneumococcal Vaccine: Pediat rics (0 to 5 Years) and At-Risk Patients (6 to 49 Years) Aged Out No longer eligible b ased on patient's age to complete this topic RSV Immunization Patients Un rodolfo 20 months Aged Out No longer eligible b ased on patient's age to complete this topic Varicella Vaccines Aged Out No longer eligible based on patient's age to complete this topic
--- OUTSIDE RECORDS SUMMARY | 2024-12-23 12:11 | XMS_ITS | Clinical Summary ---
Author Organization [employer] Address [address] [place] [address] 7 [place] [address] Care Team Providers Care Cook Relief Name Role Phone Luke Nury THOMAS Primary Care Provider [phone] Allergies No known active allergies Medications hydrocortisone 2.5 % creamIndications :Eczema, unspecified type Apply topically 2 times daily. 453.6 g 1 4 Active multivitamin () 27-0.8 MG tabletIndication s:General counseling and advice on procreative management Take 1 tablet by mouth Once per day. 30 tablet 4 Active Active Problems Problem Noted Date Diagnosed Date Routine adult health maintenance 11/16/2023 Assessment & Plan (11/16/2023 1:34 PM EDT): -age appropriate screening and immunizations up to date (STI screening) -low cardiovascular risk -mental health screening reveal mild anxiety and depression. Non-pharmacological measured reviewed -healthy social behaviors encouraged -anticipatory guidance reviewed: diet, exercise General counseling and advice on procreative man agement 11/16/2023 Pelvic pain 11/16/2023 Assessment & Plan (11/16/2023 1:51 PM EDT): -PE not supportive of PID; suspect BV, yeast, or possible STI infection -POCT UA negative for Nitrites, but trace blood and small amount of leukocytes. Will send for culture -POC Hcg negative -vaginal swab obtained for BV, yeast, STI testing -will treat with oral metronidazole for BV and flagyl for yeast -feminine hygiene reviewed, void after sexual intercourse, increase hydration -will call/message with results -follow-up if no improvement in symptoms following treatment Eczema 08/25/2023 Assessment & Plan (08/25/2023 9:09 AM EDT): - hx of eczema since being an - advised to try and stop scratching - advised to stay away from creams/lotion with alcohol - prescribed steroid cream - referred to Dermatology Mild intermittent asthma without complication Assessment & Plan (08/25/2023 9:14 AM EDT): - no hx of asthma, but has episodes of SOB with hx of eczema and allergies - prescribed albuterol inhaler PRN - follow-up with PCP for further testing Seasonal allergic rhinitis 08/25/2023 Assessment & Plan (08/25/2023 9:13 AM EDT): - will prescribe Cetrizine for PRN use Resolved Problems Problem Noted Date Diagnosed Date Resolved Date Seasonal allergies 08/25/2023 Assessment & Plan (08/25/2023 9:12 AM EDT): - will prescribe medication PRN Encounters Date Type Department Care Team Description 12/23/2024 11:00 AM EDT Office Visit [facility] [address] [place] [id number] Christianne Leyva MD Missed periods (Primary Dx); Other fatigue 12/23/2024 Travel 11/30/2024 Travel 11/30/2024 Patient Outreach [facility] [address], [place] [phone] Nury Butler NP Pre-visit Planning (SDOH unable to complete) 10/11/2024 Telephone [facility] [address] [place] [address] Nury Butler NP December recall from Last 3 Months Immunizations Immunization Administration Dates Next Due DTaP 06/29/2009, 5,03/13/2004,12/17,2003 HPV 9-Valent 11/25/2016,09/20/2015,08/02/2015 Hep A, ped/adol, 2 dose 08/02/2015,09/05/2010 Hep B, Adolescent or Pediatric 5,2003,2003,07/29 Hib (PRP-T) 12/02/2004, 5,2003,10/02 IPV 06/29/2009, 5,2003,10/02 Influenza injectable quadriv alent preservative free 05/14/2021,03/29/2019,12/03/2017,11/25,01/23/2014,06/29/2009 Influenza, injectable, quadr ivalent, preservative free, pediatric 04/03/2005,03/13/2005,05/03/2004 Influenza, seasonal, injecta ble, preservative free 11/16/2023 MMR 06/29/2009,2004 Meningococcal MCV4P ACYW-135 05/14/2021,08/02/19 16 Pfizer Covid-19 Vaccine 12+ 08/25/2023 Pneumococcal Conjugate PCV 13 03/11/2004 ,2003,2003,10/02 Tdap 08/02/2015 Varicella 06/29/2009,2004 Family History Medical History Relation Name Comments No Known Problems Brother No Known Problems Father No Known Problems Sister Relation Name Status Comments Brother Father Sister Social History Tobacco Use Types Packs/Day Years [...] Orientation Straight 01/06/2022 10 :17 AM EDT Last Filed Vital Signs Vital Sign Reading Time Taken Comments Blood Pressure 135/78 12/23/2024 10:01 AM EDT Pulse 73 12/23/2024 10:01 AM EDT Temperature 37.1 C (98.7 F) 12/23/2024 10:01 AM EDT Respiratory Rate 17 12/23/2024 10:0 1 AM EDT Oxygen Saturation 98% 11/16/2023 9:58 AM EDT Inhaled Oxygen Concentration - - Weight 68.9 kg (151 lb 12.8 oz) 025 10:01 AM EDT Height 155.6 cm (5' 1.25 ) 12/23/2024 1 0:01 AM EDT Body Mass Index 28.45 12/23/2024 10:01 AM EDT Plan of Treatment Health Maintenance Due Date Last Done Comments Pneumococcal Vaccine: Pediatrics (0 to 5 Years) and At-Risk Patients (6 to 49) Years (1 of 1 - PPSV23) 07/29/2009 03/11/2004, 2003, 2003, Additional history exists Dental X-Ray: Full Mouth 04/03/2015 04/02/2012 Alcohol/Substance Use Screening 2015 Dental Oral Exam 11/15/2015 05/14/2015, 07/03/2014 Dental Prophylaxis 11/15/2015 05/14/2015, 07/03/2014 Dental X-Ray: Bitewings 05/14/2016 05/14/2015, 07/03 Family Planning (PISQ) 07/29/2018 Meningococcal B Vaccine (1 of 2 - Standard) 2019 Pap Smear 07/29/2024 COVID-19 Vaccine (2 - 2024- season) 2024 08/25/2023 Influenza Vaccine (#1) 2024 , 05/14/2021, 03/29/2019, Additional history exists Chlamydia and Gonorrhea Screening 11/15/2024 11/16/2023 Depression Screening 11/15/2024 11/16/2023, 11/16/19 24 SDOH Screening 11/15/2024 11/16/2023 DTaP/Tdap/Td Vaccines (7 - Td or Tdap) 08/01/2025 08/02/2015, 06/29/2009, 12/02/2004, Additional history exists Disability Screening 11/30/2025 11/30/2024 Tobacco Screening 12/23/2025 12/23/2024 Zoster Vaccines (1 of 2) 07/29/2053 RSV Patients and Patients Aged 60 years or older (1 - 1-dose 75+ series) 07/29/2078 Hepatitis B Vaccines Completed 03/11/2004, 2003, 2003, Additional history exists HIB Vaccines Completed 12/02/2004, 05/2004, 2003, Additional history exists IPV Vaccines Completed 06/29/2009, 05/2004, 2003, Additional history exists Hepatitis A Vaccines Completed 08/02/2015, 09/06/19 11 HPV Vaccines Completed 11/25/2016, 09/06, 08/02/2015 Meningococcal Vaccine Completed 05/14/2021, 016 HIV Screening Completed 11/16/2023 Hepatitis C Screening Completed 11/16/2023 RSV under 20 months Aged Out No longe r eligible based on patient's age to complete this topic Rotavirus Vaccines Aged Out No longer eligible based on patient's age to complete this topic Procedures Procedure Name Priority Date/Time Associated Diagnosis Comments CBC WITH AUTO DIFFERENTIAL Routine 12/23/2024 10:23 AM EDT Other fatigue POCT , URINE Routine 12/23/2024 10:14 AM EDT Missed periods HEPATITIS C AB W/REFL TO HCV RNA, QN, PCR Routine 11/16/2023 11:09 AM EDT Encounter for health-related screening HIV 1/2 ANTIGEN/ANTIBODY, FOURTH GENERATION W/RFL Routine 11/16/2023 11:09 AM EDT Encounter for health-related screening CHLAMYDIA/N. GONORRHOEAE RNA, TMA, UROGENITAL Routine 11/16/2023 12:00 AM EDT Pelvic pain PROPHYLAXIS - CHILD Routine 05/14/2015 1 2:00 AM EST BITEWINGS - 4 RADIOGRAPHIC IMAGES Routine 05/14/2015 12:00 AM EST PERIODIC ORAL EVALUATION - ESTABLISHED PATIENT Routine 05/14/2015 12:00 AM EST PANORAMIC RADIOGRAPHIC IMAGE Routine 04/02/2012 12:00 AM EST from Last 3 Months or Most Recently Relevant to Health Maintenance Results * (ABNORMAL) CBC auto differential (12/23/2024 10:23 AM EDT) White Blood Count 5.1 4.8 - 10.8 X10*3/uL [facility] Red Blood Count 4.90 4.20 - 5.50 X10*6/uL [facility] Hemoglobin 12.6 12.0 - 16.0 g/dl [facility] Hematocrit 39.1 37.0 - 47.0 % [facility] Mean Corpuscular Volume 79.8(L) 80.0 - 98.0 fL [facility] Mean Corpuscular Hemoglobin 25.7(L) 27.0 - 33.0 pg [facility] Mean Corpuscular HGB Conc 32.2 31.0 - 35.0 g/dl [facility] Red Cell Distribution Width 14.3 11.0 - 16.0 % [facility] Platelet Count 333 160 - 400 X10*3/uL [facility] Mean Platelet Volume 8.7(L) 9.4 - 12.3 fL [facility] Neutrophils Percent Auto 48.0 45 - 73 % [facility] Imm Gran Pct Auto 0.4 0.0 - 0.4 % [facility] Lymphocytes Percent Auto 37.1 20 - 40 % [facility] Monocytes Percent Auto 10.0 2 - 11 % [facility] Eosinophils Percent Auto 3.5 0 - 4 % [facility] Basophils Percent Auto 1.0 0 - 2 % [facility] NRBC Pct Auto 0.0 0.0 - 0.2 /100WBC [facility] Neutrophils Absolute Auto 2.4 2.0 - 8.3 x10*3/uL [facility] Imm Gran Abs Auto 0.02 0.00 - 0.03 X10*3/uL [facility] Lymphocytes Absolute Auto 1.9 1.2 - 4.9 X10*3/uL [facility] Monocytes Absolute Auto 0.5 0.1 - 1.2 X10*3/uL [facility] Eosinophils Absolute Auto 0.2 0.0 - 0.4 X10*3/uL [facility] Basophils Absolute Auto 0.1 0.0 - 0.2 X10*3/uL [facility] NRBC Abs Auto 0.000 0.0 - 0.012 X10*3/uL [facility] Blood Venous blood specimen / Unknown 12/23/2024 10:23 AM EDT 12/23/2024 11:16 AM EDT us Christianne Leyva MD LAB BLOOD ORDERABLES Final Resul t [facility] [address] [place] [address] [phone] * POCT , urine manually resulted (12/23/2024 10:14 AM EDT) Pathologist [facility] Preg Test, Ur Negative Negative, Indeterminate, None Detected, Invalid, Specimen unsatisfactory for evaluation, Weakly Positive, 2+ Urine 12/23/2024 10:1 4 AM EDT Christianne Leyva MD POINT OF CARE TEST ENTER/EDIT OR DERABLES Final Result * Hepatitis C Antibody with Reflex to HCV, RNA, Quantitative, Real-Time PCR (11/16/2023 11:09 AM EDT) [facility] Hepatitis C Antibody Nonreactive Nonreactive [facility] Comment:Antibodies to HCV no t detected; does not exclude early acuteHCV infection. Blood Venous blood specimen / Unknown 11/16/2023 11:09 AM EDT 11/16/2023 1:10 PM EDT Nury Butler NP LAB BLOOD ORDERABLES Final Resu lt [facility] [address] [place] [address] [phone] * HIV-1/2 Antigen and Antibodies, Fourth Generation, with Reflexes (11/16/2023 11:09 AM EDT) [facility] HIV AB/AG Nonreactive Nonreactive [facility] Comment:HIV-1 p24 Ag and/or HIV-1/HIV-2 Ab not detected.A test result that is nonreactive does not exclude thepossibility of exposure to or infection with HIV-1 and/orHIV-2. Nonreactive results in this assay for individualswith prior exposure to HIV-1 and/or HIV-2 may be due toantigen and antibody levels that are below the limit ofdetection of this assay.The 4INFOniZapstitch HIV Ag/Ab Combo assay result andsupplemental assay results should be interpreted inconjunction with the patient's clinical presentation,history and other laboratory results. If the results areinconsistent with clinical evidence, additional testing issuggested to confirm the result. Blood Venous blood specimen / Unknown 11/16/2023 11:09 AM EDT 11/16/2023 1:10 PM EDT Nury Butler SERVICE WRITER LAB BLOOD ORDERABLES Final Resu lt [facility] [address] [place] [address] [phone] * Chlamydia/N. Gonorrhoeae RNA, TMA, Urogenitial (11/16/2023 12:00 AM EDT) CT PCR NOT DETECTED Not Detect. [facility] Comment:A not detected test result does not exclude the possibilityof infection because test results can be affected byimproper specimen collection, concurrent antibiotic therapy,or the number of organisms in the specimen which may bebelow the sensitivity of the test. As with many diagnostictests, results from the Xpert CT/NG assay should beinterpreted in conjunction with other laboratory andclinical data available to the clinician.Xpert CT/NG performance has not been evaluated in patientsless than 14 years of age. The assay should not be used forthe evaluationof suspected sexual abuse or for other medico-legalindications. Additional testing is recommended in anycircumstance when false positive or false negative resultscould lead to adverse medical, social or psychologicalconsequences. NG PCR NOT DETECTED Not Detect. [facility] Comment:A not detected test result does not exclude the possibilityof infection because test results can be affected byimproper specimen collection, concurrent antibiotic therapy,or the number of organisms in the specimen which may bebelow the sensitivity of the test. As with many diagnostictests, results from the Xpert CT/NG assay should beinterpreted in conjunction with other laboratory andclinical data available to the clinician.Xpert CT/NG performance has not been evaluated in patientsless than 14 years of age. The assay should not be used forthe evaluationof suspected sexual abuse or for other medico-legalindications. Additional testing is recommended in anycircumstance when false positive or false negative resultscould lead to adverse medical, social or psychologicalconsequences. Swab (Vaginal Swab) 11/16/2023 11/16/2023 Narrative [facility] - 11/16/2023 3:54 PM EDT Vaginal us Nury Butler NP LAB MICROBIOLOGY - GENERAL BAMBI ALTAMIRANO Final Result [facility] [address] [place] [address] [phone] from Last 3 Months or Most Recently Relevant to Health Maintenance Insurance [facility] C3 DENTAL-[facility] MEDICAID STAND ADULT Care Teams Cook Relief Relationship Specialty Start Date End Date Nury Butler NP [address] [place] [phone] PCP - General Family Medicine 05/11/23
--- OUTSIDE RECORDS SUMMARY | 2024-12-23 12:11 | XMS_ITS | Encounter Summary ---
Author Organization [employer] Address [address] [facility] [address] [place] [address] Care Team Providers Care Sheet Finisher Name Role Phone Danielle Sandhu Primary Care Provider [phone] Nury Butler NP Primary Care Provider [phone] Encounter Details Date Type Department Care Team (Late st Contact Info) Description 05/13/2022 Orders Only [facility] [address] [place] [address] Irena Jama LPN Social History Tobacco Use Types Packs/Day Years [...] Diagnoses Not on filedocumented in this encounter Care Teams Sheet Finisher Relationship Specialty Start Date End Date Danielle Sandhu FNP [address] [place] [address] PCP - General Family Medicine 12/12/21 05/10/23 Nury Butler NP [address] [place] [address] PCP - General Family Medicine 05/11/23 documented as of this encounter
== END 2024-12-23 10:18 | disposition home or self-care (01) ==
LOC: HO.HHCL 10:17
PROVIDERS: PCP Student in an Organized Health Care Education/Training Program; Visit Provider Student in an Organized Health Care Education/Training Program
DX: R53.83 Other fatigue (principal); N92.6 Irregular menstruation, unspecified
CPT/HCPCS: 36415; 84443; 84702; 85025